=== PATIENT | female | born 1970 | race Caucasian/White ===

== ENCOUNTER 2022-01-23 01:53 | Emergency (ER) | payer BC ==
[~2022-01-23] VITALS: Ht 170 cm; Wt 94.4 kg
[2022-01-23] MEDS ORDERED: SPIR100T4 (02:19)
[2022-01-23 02:20] LABS: BILIRUBIN,URINE NEGATIVE (NEGATIVE); CLARITY,URINE CLEAR; COLOR,URINE YELLOW; GLUCOSE, URINE (UA) NEGATIVE (NEGATIVE); KETONES,URINE NEGATIVE (NEGATIVE); LEUKOCYTE ESTERASE ,URINE NEGATIVE (NEGATIVE); NITRITE,URINE NEGATIVE (NEGATIVE); PH,URINE 6.5 (5-9); PROTEIN,URINE NEGATIVE (NEGATIVE)
[2022-01-23] MEDS ORDERED: FAMOTIDINE 20 MG (PEPCID) TABLET PO STA (02:34)
[2022-01-23 02:42] LABS: BACTERIA,URINE TRACE /HPF; RBC,URINE 0-2 /HPF; SQUAMOUS EPITHELIAL CELL,UR 0-2 /HPF; WBC,URINE 0-2 /HPF
[2022-01-23] MEDS ORDERED: ANTACID SUSP 30 ML UDC (MYLANTA) PO ONE (02:45)
[2022-01-23] MEDS ORDERED: LIDOCAINE 2% VISCOUS 15 ML UDC PO ONE (02:45)
[2022-01-23] MEDS ORDERED: LACTATED RINGERS 1,000 ML IV ONE (02:45)
[2022-01-23 02:52] LABS: AMPHETAMINE SCREEN, URINE NEGATIVE (NEGATIVE); BARBITURATE SCREEN URINE NEGATIVE (NEGATIVE); BENZODIAZEPINES SCREEN URINE NEGATIVE (NEGATIVE); CANNABINOID SCREEN, URINE NEGATIVE (NEGATIVE); COCAINE SCREEN URINE NEGATIVE (NEGATIVE); METHADONE STAT NEGATIVE (NEGATIVE); OPIATE SCREEN URINE NEGATIVE (NEGATIVE); OXYCODONE STAT NEGATIVE (NEGATIVE); PROPOXYPHENE STAT NEGATIVE (NEGATIVE); TRICYCLIC ANTIDEPRESSANTS SCRE NEGATIVE (NEGATIVE)
[2022-01-23 02:52] LABS: BASOPHILS % (AUTO) 0 % (0-10); EOSINOPHILS % (AUTO) 0 % (0-10); HEMATOCRIT 37 % (35-52); HEMOGLOBIN 12.1 g/dL (11.5-16.0); LYMPHOCYTES # (AUTO) 1.5 10^3/uL (1.0-4.0); LYMPHOCYTES % (AUTO) 17 % (12-44); MEAN CORPUSCULAR HEMOGLOBIN 29 pg (25-34); MEAN CORPUSCULAR HGB CONC 33 g/dL (32-36); MEAN CORPUSCULAR VOLUME 87 fL (80-99); MEAN PLATELET VOLUME 9.8 fL (9.0-12.2); MONOCYTES # (AUTO) 0.5 10^3/uL (0.0-1.0); MONOCYTES % (AUTO) 6 % (0-12); NEUTROPHILS # (AUTO) 6.4 10^3/uL (1.8-7.8); NEUTROPHILS % (AUTO) 76 % (42-75); PLATELET COUNT 267 10^3/uL (130-400); WHITE BLOOD COUNT 8.4 10^3/uL (4.3-11.0)
[2022-01-23 02:58] LABS: POTASSIUM 4.1 MMOL/L (3.6-5.0)
[2022-01-23 02:59] LABS: CALCIUM 9.4 MG/DL (8.5-10.1)
[2022-01-23 03:01] LABS: TOTAL PROTEIN 8.3 GM/DL (6.4-8.2)
[2022-01-23 03:02] LABS: BILIRUBIN,TOTAL 0.4 MG/DL (0.1-1.0)
[2022-01-23 03:04] LABS: CREATININE SERUM 1.04 MG/DL (0.60-1.30)
[2022-01-23] MEDS ORDERED: OMEP20CA18 PO (03:43)
[2022-01-23] MEDS ORDERED: SUCR1TAB36 PO ×2 (03:43→03:49)
--- NOTE | 2022-01-23 03:43 | ED Abdominal Pain ---
General Chief Complaint: Abdominal/GI Problems Stated Complaint: ABD PAIN Nursing Triage Note: c/o intermittant epigastric pain x2 weeks worse x1 day. Source of Information: Patient Exam Limitations: No Limitations History of Present Illness Date Seen by Provider: Jan 23, 2022 Time Seen by Provider: 02:38 Initial Comments Patient to the ER by private conveyance from home with chief complaint of 2 weeks intermittent epigastric abdominal pain burning in nature. Worse with laying down flat. No history of ulcers or EGD. Followed by Dr. FRANCISCO. She states she takes a lot of ibuprofen but thought that maybe that was the source of her abdominal pain so she switched to Tylenol. No nausea vomiting fever. Rates the pain as a 9 out of 10. She does not drink alcohol routinely Allergies and Home Medications Allergies Coded Allergies: No Known Drug Allergies (Unverified , 01/23/22) Patient Home Medication List Home Medication List Reviewed: Yes Omeprazole (Omeprazole) 20 Mg Capsule.dr, 20 MG PO BID Prescribed by: GUILHERME FELICIANO on 01/23/22342 Spironolactone (Spironolactone) 100 Mg Tablet, (Reported) Entered as Reported by: JAMA WALKER on 01/23/22218 Last Action: New Order Sucralfate (Carafate) 1 Gram Tablet, 1 GM PO QIDACHS Prescribed by: GUILHERME FELICIANO on 01/23/22342 Review of Systems Review of Systems Constitutional: No chills, No diaphoresis EENTM: No Blurred Vision, No Double Vision Respiratory: Denies Cough, Denies Orthopnea Cardiovascular: Denies Chest Pain, Denies Lightheadedness Gastrointestinal: See HPI, Abdominal Pain; Denies Constipated, Denies Diarrhea, Denies Nausea All Other Systems Reviewed Negative Unless Noted: Yes Past Xqnovdr-Mbxunh-Psnyoy Hx Patient Social History Tobacco Use?: No Substance use?: No Alcohol Use?: Yes Alcohol Frequency: Once in a while Pt feels they are or have been: No Past Medical History Surgery/Hospitalization HX: eye, ankle, htn Physical Exam Vital Signs Vital Signs - First Documented 01/23/22 02:09 Temp 35.9 Pulse 136 Resp 16 B/P (MAP) 116/97 (103) Pulse Ox 97 O2 Delivery Room Air Capillary Refill : Less Than 3 Seconds Height/Weight/BMI Height: '" Weight: lbs. oz. kg; 32.00 BMI Method: General Appearance: WD/WN, no apparent distress HEENT: PERRL/EOMI, pharynx normal Neck: full range of motion, supple, normal inspection Respiratory: lungs clear, normal breath sounds, no respiratory distress, no accessory muscle use Gastrointestinal: normal bowel sounds, non tender, soft, no organomegaly Extremities: normal range of motion, normal capillary refill Progress/Results/Core Measures Results/Orders Lab Results Laboratory Tests Test 01/23/22 02:11 01/23/22 02:38 Range/Units Urine Color YELLOW Urine Clarity CLEAR Urine pH 6.5 5-9 Urine Specific [place] 1.010 L 1.016-1.022 Urine Protein NEGATIVE NEGATIVE Urine Glucose (UA) NEGATIVE NEGATIVE Urine Ketones NEGATIVE NEGATIVE Urine Nitrite NEGATIVE NEGATIVE Urine Bilirubin NEGATIVE NEGATIVE Urine Urobilinogen 0.2 < = 1.0 MG/DL Urine Leukocyte Esterase NEGATIVE NEGATIVE Urine RBC (Auto) NEGATIVE NEGATIVE Urine RBC 0-2 /HPF Urine WBC 0-2 /HPF Urine Squamous Epithelial Cells 0-2 /HPF Urine Crystals NONE /LPF Urine Bacteria TRACE /HPF Urine Casts NONE /LPF Urine Mucus NEGATIVE /LPF Urine Culture Indicated NO Urine Opiates Screen NEGATIVE NEGATIVE Urine Oxycodone Screen NEGATIVE NEGATIVE Urine Methadone Screen NEGATIVE NEGATIVE Urine Propoxyphene Screen NEGATIVE NEGATIVE Urine Barbiturates Screen NEGATIVE NEGATIVE Ur Tricyclic Antidepressants Screen NEGATIVE NEGATIVE Urine Phencyclidine Screen NEGATIVE NEGATIVE Urine Amphetamines Screen NEGATIVE NEGATIVE Urine Methamphetamines Screen NEGATIVE NEGATIVE Urine Benzodiazepines Screen NEGATIVE NEGATIVE Urine Cocaine Screen NEGATIVE NEGATIVE Urine Cannabinoids Screen NEGATIVE NEGATIVE White Blood Count 8.4 4.3-11.0 10^3/uL Red Blood Count 4.23 3.80-5.11 10^6/uL Hemoglobin 12.1 11.5-16.0 g/dL Hematocrit 37 35-52 % Mean Corpuscular Volume 87 80-99 fL Mean Corpuscular Hemoglobin 29 25-34 pg Mean Corpuscular Hemoglobin Concent 33 32-36 g/dL Red Cell Distribution Width 13.0 10.0-14.5 % Platelet Count 267 130-400 10^3/uL Mean Platelet Volume 9.8 9.0-12.2 fL Immature Granulocyte % (Auto) 0 % Neutrophils (%) (Auto) 76 H 42-75 % Lymphocytes (%) (Auto) 17 12-44 % Monocytes (%) (Auto) 6 0-12 % Eosinophils (%) (Auto) 0 0-10 % Basophils (%) (Auto) 0 0-10 % Neutrophils # (Auto) 6.4 1.8-7.8 10^3/uL Lymphocytes # (Auto) 1.5 1.0-4.0 10^3/uL Monocytes # (Auto) 0.5 0.0-1.0 10^3/uL Eosinophils # (Auto) 0.0 0.0-0.3 10^3/uL Basophils # (Auto) 0.0 0.0-0.1 10^3/uL Immature Granulocyte # (Auto) 0.0 0.0-0.1 10^3/uL Sodium Level 132 L 135-145 MMOL/L Potassium Level 4.1 3.6-5.0 MMOL/L Chloride Level 99 98-107 MMOL/L Carbon Dioxide Level 21 21-32 MMOL/L Anion Gap 12 5-14 MMOL/L Blood Urea Nitrogen 14 7-18 MG/DL Creatinine 1.04 0.60-1.30 MG/DL Estimat Glomerular Filtration Rate 65 BUN/Creatinine Ratio 13 Glucose Level 126 H 70-105 MG/DL Calcium Level 9.4 8.5-10.1 MG/DL Corrected Calcium 9.4 8.5-10.1 MG/DL Total Bilirubin 0.4 0.1-1.0 MG/DL Aspartate Amino Transf (AST/SGOT) 16 5-34 U/L Alanine Aminotransferase (ALT/SGPT) 10 0-55 U/L Alkaline Phosphatase 63 40-136 U/L C-Reactive Protein High Sensitivity 4.51 H 0.00-0.50 MG/DL Total Protein 8.3 H 6.4-8.2 GM/DL Albumin 4.0 3.2-4.5 GM/DL Lipase 51 8-78 U/L My Orders Orders - GUILHERME FELICIANO Ua Culture If Indicated (01/23/22 01:56) Cbc With Automated Diff (01/23/22 02:13) Comprehensive Metabolic Panel (01/23/22 02:13) Hs C Reactive Protein (01/23/22 02:13) Lipase (01/23/22 02:13) Lidocaine 2% Viscous 15 Ml (Xylocaine Vi (01/23/22 02:45) Famotidine Tablet (Pepcid Tablet) (01/23/22 02:34) Antacid Suspension (Mylanta Suspension (01/23/22 02:45) Ed Iv/Invasive Line Start (01/23/22 02:34) Lactated Ringers (Lr 1000 Ml Iv Solution (01/23/22 02:45) Drug Screen Stat (Urine) (01/23/22 02:34) Medications Given in ED Current Medications Medications Dose Ordered Sig/Kaz Route Start Time Stop Time Status Last Admin Dose Admin Al Hydrox/Mg Hydrox/Simethicone 30 ml ONCE ONCE PO 01/23/22 02:45 01/23/22 02:46 DC 01/23/22 02:38 30 ML Lactated Ringer's 1,000 ml @ 0 mls/hr Q0M ONCE IV 01/23/22 02:45 01/23/22 02:46 DC 01/23/22 02:38 0 MLS/HR Lidocaine HCl 15 ml ONCE ONCE PO 01/23/22 02:45 01/23/22 02:46 DC 01/23/22 02:38 15 ML Vital Signs/I&O 01/23/22 02:09 Temp 35.9 Pulse 136 Resp 16 B/P (MAP) 116/97 (103) Pulse Ox 97 O2 Delivery Room Air Blood Pressure Mean: 103 Progress Progress Note : Time: 03:40 Progress Note Labs are unremarkable. GI cocktail took her pain away. Plan to put her on Carafate, omeprazole 20 twice daily and follow-up with Dr. BONNER if symptoms not improving in 2 weeks Departure Impression Primary Impression: Gastritis Qualified Codes: K29.00 - Acute gastritis without bleeding Disposition: HOME, SELF-CARE Condition: Improved Departure-Patient Inst. Decision time for Depature: 03:40 Referrals: VINITA BONNER MD, JACQUELINE S DO (PCP/Family) Primary Care Physician Patient Instructions: Gastritis (DC) Add. Discharge Instructions: Start taking omeprazole/Prilosec 20 mg twice a day for the next 30 days. Carafate half an hour before meals and at bedtime for a total of 4 times a day for 2 weeks. If you not seeing improvement after 2 weeks of this then follow-up with Dr. BONNER or your primary care doctor for further investigation and potential endoscopy. If you are having intractable symptoms you can try Tums, Rolaids, Maalox, Mylanta, etc. If this does not work and your pain is keeping you from being functional then I encourage you to return promptly to the nearest ER. All discharge instructions reviewed with patient and/or family. Voiced understanding. Scripts Sucralfate (Carafate) 1 Gram Tablet 1 GM PO QIDACHS for 14 Days, #56 TAB 0 Refills Prov: GUILHERME FELICIANO 01/23/22 Omeprazole (Omeprazole) 20 Mg Capsule. 20 MG PO BID for 30 Days, #60 CAP 0 Refills Prov: GUILHERME FELICIANO 01/23/22 Copy Copies To 1: VINITA BONNER MD; JOSÉ ANTONIO FRANCISCO DO GUILHERME FELICIANO Jan 23, 2022 03:42
[2022-01-23 03:44] VITALS: BP 116/84
== END 2022-01-23 03:45 | disposition home or self-care (01) ==
LOC: EDUNIT# 01:53 → ER 01:59
DX: K29.70 Gastritis, unspecified, without bleeding (principal)
CPT/HCPCS: 36415; 80053; 80306; 81000; 83690; 85025; 86141

== ENCOUNTER → 2023-03-09 | Outpatient (CLI) | payer BC, OTHER ==
[~2023-03-09] MED LIST: OMEP20CA18 PO; SPIR100T4; SUCR1TAB36 PO
--- NOTE | 2023-03-12 10:38 | Diagnostic Imaging Report ---
INDICATION: Routine screening. COMPARISON: 10/26/2021 and 10/06/2020. TECHNIQUE: 2D and 3D bilateral screening mammography was performed with CAD. FINDINGS: Both breasts are heterogeneously dense, limiting the sensitivity of mammography. A density in the outer aspect of the right breast at anterior depth appears to be slightly more irregular on today's study. Additional views are recommended. The left breast is unremarkable. No malignant-appearing microcalcifications are seen. The axillae are unremarkable. IMPRESSION: Right breast density. Additional views are recommended for further evaluation. ACR BI-RADS Category 0: Incomplete. (Needs additional imaging evaluation). Result letter will be mailed to the patient. Note: At least 10% of breast cancer is not imaged by mammography. Dictated by: Dictated on workstation # [id number]
== END ==
LOC: RAD 08:23
PROVIDERS: ATTEND Nurse Practitioner Family
DX: Z12.31 Encounter for screening mammogram for malignant neoplasm of breast (principal)
CPT/HCPCS: 77063; 77067

== ENCOUNTER → 2023-03-29 | Outpatient (CLI) | payer OTHER | LOC: RAD 13:45 | PROVIDERS: ATTEND Nurse Practitioner Family | DX: Z53.9 Procedure and treatment not carried out, unspecified reason (principal) ==

== ENCOUNTER → 2023-04-12 | Outpatient (CLI) | payer OTHER ==
--- NOTE | 2023-04-12 13:08 | Diagnostic Imaging Report ---
INDICATION: Right breast density. Patient presents for additional views. Correlation is made with recent screening study from 03/09/2023 as well as prior mammograms dating back to 2020. Unilateral right 2-D and 3-D diagnostic mammography was performed. Included spot compression CC and ML views as well as conventional 90 degrees lateral views. There is a persistent density in the outer right breast approximately 4-5 cm from the nipple. This projects at or slightly above the nipple line on the medial lateral view. IMPRESSION: Persistent density outer right breast anterior to mid depth. Further evaluation with ultrasound is recommended and will be performed today. ACR BI-RADS Category 0: Incomplete. (Needs additional imaging evaluation). Result letter will be mailed to the patient. Note: At least 10% of breast cancer is not imaged by mammography. BI-RADS 0 Dictated by: Dictated on workstation # [id number]
--- NOTE | 2023-04-12 15:28 | Diagnostic Imaging Report ---
INDICATION: Right breast density. Study is performed for further evaluation. CORRELATION is made with diagnostic mammogram earlier the same day as well as prior mammograms dating back to 2020. Sonographic interrogation of the outer right breast was performed. There is a tiny cyst at the 9:00 location 3-4 cm from the nipple approximately 3 mm x 5 mm in size. In addition, there is a somewhat lobulated hypoechogenicity with echogenic center measuring 10 x 5 x 9 mm. This likely accounts for the mammographic density. This has fairly benign features and may represent an intraparenchymal lymph node. No other masses are identified. IMPRESSION: BI-RADS Category 3 Hypoechoic nodule at the 9:00 location right breast, 5 cm from the nipple, likely accounting for the mammographic density. This has fairly benign features and may represent an intraparenchymal lymph node. Even so, follow-up right mammogram and right breast ultrasound in 6 months is recommended to show continued stability. ACR BI-RADS Category 3: Probably benign findings. Result letter will be mailed to the patient. Note: At least 10% of breast cancer is not imaged by mammography. Dictated by: Dictated on workstation # [id number]
== END ==
LOC: RAD 12:19
PROVIDERS: ATTEND Nurse Practitioner Family
DX: N63.15 Unspecified lump in the right breast, overlapping quadrants (principal)
CPT/HCPCS: 76642; 77065; G0279